=== PATIENT | male | born 1990 | race Caucasian/White ===

== ENCOUNTER → 2017-03-05 | Outpatient (CLI) | payer OTHER | LOC: FIMAGING 18:32 | PROVIDERS: ATTEND Family Medicine | DX: M25.561 Pain in right knee (principal); M25.562 Pain in left knee; R93.6 Abnormal findings on diagnostic imaging of limbs ==

== ENCOUNTER 2017-08-13 16:00 | Emergency (ER) | payer OTHER ==
[2017-08-13 16:34] VITALS: RESP 16; TEMP 98.8
--- NOTE | 2017-08-13 17:39 | EDPHY ---
H & P Smoking Status: Former smoker Time Seen by Provider: 08/13/17 16:56 HPI/ROS: CHIEF COMPLAINT: Rectal bleeding HISTORY OF PRESENT ILLNESS: 27-year-old male presents to the emergency department by private vehicle with 1 episode of rectal bleeding earlier this morning. Patient has a complicated past medical history including antiphospholipid antibody on Coumadin. He has a previous history of CVA. He has had a mitral valve repair. He states yesterday he had some watery diarrhea which then mostly resolved. He states that he had a bowel movement this morning which was more formed stool with bright red blood. He has some mild lower abdominal discomfort. He denies back pain. Denies chest pain or difficulty breathing. Denies urinary symptoms. He has never had this happen in the past. Denies trauma. REVIEW OF SYSTEMS: Constitutional: No fever, no chills. Eyes: No double or blurry vision. ENT: No sore throat. Respiratory: No cough, no shortness of breath. Cardiac: No chest pain. Gastrointestinal: Abdominal pain as above. Rectal bleeding as above. Diarrhea. No vomiting. Genitourinary: No dysuria. Musculoskeletal: No neck or back pain. Skin: No rashes. Neurological: No headache. (Patsy Espinoza) Past Medical/Surgical History: Antiphospholipid antibody, CVA 6 years ago, mitral valve repair in 2012, connective tissue disorder, hypertension, former substance abuse (Patsy Espinoza) Social History: Single (Patsy Espinoza) Physical Exam: General Appearance: Alert, no distress. Blood pressure 148/100, heart rate 74 , 98% on room air. Eyes: Pupils equal and round. Extraocular motions are all intact. ENT: Mouth: Mucous membranes moist. Respiratory: No wheezing, rhonchi, or rales, lungs are clear to auscultation. Cardiovascular: Regular rate and rhythm. Gastrointestinal: Abdomen is soft. Mild tenderness with palpation in the lower abdomen in the left and the right lower quadrant.. There is no rebound, guarding or masses noted. Neurological: Alert and oriented x 3, cranial nerves II through XII grossly intact Rectal exam: Normal sphincter tone. No obvious external hemorrhoid palpated. Bright red blood on gloved finger. No palpable mass. No stool. Skin: Warm and dry, no rashes. Musculoskeletal: Nontender to palpate along the cervical, thoracic or lumbar spine. Neck is supple. Extremities: Full range of motion and no peripheral edema. Psychiatric: Patient is oriented X 3, there is no agitation. (Patsy Espinoza) Constitutional: Initial Vital Signs Temperature (C) 37.1 C 08/13/17 16:31 Heart Rate 84 08/13/17 16:31 Respiratory Rate 16 08/13/17 16:31 Blood Pressure 134/94 H 08/13/17 16:31 O2 Sat (%) 99 08/13/17 16:31 O2 Delivery Mode Room Air Allergies/Adverse Reactions: amoxicillin [Amoxicillin] Allergy (Mild, Verified 08/13/17 16:29) Vomiting Cephalosporins Allergy (Mild, Verified 08/13/17 16:29) Rash levetiracetam [From Keppra] Allergy (Verified 08/13/17 16:29) Home Medications: Medication Instructions Recorded Warfarin Sodium [Coumadin 7.5MG 7.5 mg PO SUTUTHSA@16 06/06/14 (*)] Jeanmarie Cit/Mag/D3/Zn/Metal Machine Setter/Luis/Bor 04/01/15 Ondansetron 04/01/15 Oxycodone HCl 04/01/15 Plaquenil 200 mg (RX) 04/01/15 Prednisone 04/01/15 Alprazolam 08/13/17 Enoxaparin [Lovenox 80 MG (*)] 70 mg SQ Q12H #6 syr 08/13/17 Lyrica 08/13/17 Temazepam 08/13/17 busPIRone 08/13/17 Medical Decision Making ED Course/Re-evaluation: 27-year-old male presents to the emergency department with rectal bleeding. Patient had a rectal exam with what appeared to be blood although this was guaiac negative. His CBC was within normal limits. INR was low at 1.4. The patient thinks that he may have skipped a dose of his Coumadin. The case was discussed with Dr. Sheldon Whiteside, secondary supervising physician, who did not directly evaluate the patient but agrees with treatment and plan. He recommended men's bridging the patient with Lovenox twice daily for the next 3 days as he continues his prescribed Coumadin 10 mg daily. Encouraged close follow up with Gastroenterology as well as his primary care provider. He was instructed to return to the emergency department if he had any change in symptoms or felt worse in any way. Patient was comfortable with this plan. He was drinking juice and he felt comfortable being discharged home. (Patsy Espinoza) I did not see this patient while he was in the emergency department. However his care was discussed with the PA while the patient was in the department. I agree with treatment plan and management (Sheldon Whiteside) Differential Diagnosis: Including but not limited to internal hemorrhoid, external hemorrhoid, gastroenteritis, GI bleed (Patsy Espinoza) - Data Points Laboratory Results: Laboratory Results 08/13/17 19:15 08/13/17 19:15 Medications Given: Discontinued Medications Enoxaparin Sodium (Lovenox) 70 mg SC EDNOW ONE Stop: 08/13/17 21:46 Last Admin: 08/13/17 22:15 Dose: 70 mg Departure - Departure Disposition: Home, Routine, Self-Care Clinical Impression: Sub therapeutic INR, Rectal bleeding Condition: Good Instructions: Rectal Bleeding (ED) Additional Instructions: Continue Coumadin as prescribed. Lovenox twice daily for 3 days. Follow up with Dr. Morillo this week to recheck and have INR recheck. Return to the emergency department if you develop rectal bleeding, worsening abdominal pain, vomiting, fever, or if you feel worse in any way. Referrals: Елена Skelton MD [Primary Care Provider] - As per Instructions Billy Mix MD [Medical Doctor] - As per Instructions (Family Reunification Specialist on-call ) Prescriptions: Enoxaparin [Lovenox 80 MG (*)] 70 mg SQ Q12H #6 syr
[2017-08-13 19:27] LABS: PLATELET COUNT 225 10^3/uL (150-400)
[2017-08-13 19:48] LABS: INR 1.41 (0.83-1.16); PROTIME(PATIENT) 17.4 SEC (12.0-15.0)
[2017-08-13] MEDS ORDERED: ENOXAPARIN 80 MG/0.8 ML SYR SC ONE ×2 (21:11→21:45)
[2017-08-13 22:26] VITALS: BP 152/94; PULSE 88; O2SAT 98
== END 2017-08-13 22:25 | disposition home or self-care (01) ==
DX: K62.5 Hemorrhage of anus and rectum (principal); R79.1 Abnormal coagulation profile; I10 Essential (primary) hypertension; Z79.01 Long term (current) use of anticoagulants; Z86.73 Personal history of transient ischemic attack (TIA), and cerebral infarction without residual deficits
CPT/HCPCS: J1650

== ENCOUNTER 2017-11-23 11:35 | Emergency (ER) | payer OTHER ==
[2017-11-23 11:48] VITALS: BP 137/99
--- NOTE | 2017-11-23 12:12 | EDPHY ---
H & P Time Seen by Provider: 11/23/17 12:01 HPI/ROS: CHIEF COMPLAINT: Drill injury to genitalia HISTORY OF PRESENT ILLNESS: 27-year-old male with up-to-date tetanus, history of chronic warfarin use secondary to antiphospholipid syndrome, was using a mechanical with hand-held drill, drooling toward himself, building a grill when the drill slipped and went through shorts and impacted his genitalia. He has not urinated since the incident. Occurred shortly prior to arrival. Bleeding has now stopped. This was accidental PHYSICAL EXAM (Prior to examination, patient consented to physical exam, hands were washed and my usual and customary physical exam procedures followed) 1) GENERAL: Well-developed, well-nourished, alert and oriented. Appears anxious. 2) HEAD: Normocephalic 3) HEENT: sclera anicteric 4) LUNGS: Breathing comfortably. [5) : Bandages in place on the scrotum and the penis, taken down. On the left hemiscrotum superficial abrasion with no puncture wound. No signs of infection. No cellulitis. On the left dorsal shaft of the penis he has superficial abrasion, no puncture wound, no laceration. No blood from the urethral meatus. Smoking Status: Former smoker Constitutional: Initial Vital Signs Temperature (C) 37 C 11/23/17 11:45 Heart Rate 88 11/23/17 11:45 Respiratory Rate 16 11/23/17 11:45 Blood Pressure 137/99 H 11/23/17 11:45 O2 Sat (%) 97 11/23/17 11:45 O2 Delivery Mode Room Air Allergies/Adverse Reactions: amoxicillin [Amoxicillin] Allergy (Mild, Verified 08/13/17 16:29) Vomiting Cephalosporins Allergy (Mild, Verified 08/13/17 16:29) Rash levetiracetam [From Keppra] Allergy (Verified 08/13/17 16:29) Home Medications: Medication Instructions Recorded Warfarin Sodium [Coumadin 7.5MG 7.5 mg PO SUTUTHSA@16 06/06/14 (*)] Jeanmarie Cit/Mag/D3/Zn/Luster Applicator/Luis/Bor 04/01/15 Plaquenil 200 mg (RX) 04/01/15 Prednisone 04/01/15 Lyrica 08/13/17 busPIRone 08/13/17 Metoprolol Succinate 11/23/17 MDM/Departure - [facility] ED Course/Re-evaluation: This patient has superficial abrasion to the left hemiscrotum and left shaft of penis. Doubt testicular injury, doubt urethral injury. I do not think that retrograde urethrogram indicated. I do not think that testicular ultrasound is indicated. Patient has spontaneously urinated in the emergency department with no gross hematuria. Tetanus is already up-to-date. Wound has been dressed with antibiotic ointment. Usual customary precautions instructions provided. He does have a history of daily warfarin use secondary to antiphospholipid syndrome. Close monitoring to ensure no hematoma development encouraged. Care of patient under supervision of secondary supervising physician Dr Lubin with whom I discussed case. - Depart Disposition: Home, Routine, Self-Care Clinical Impression: Abrasion of scrotum Qualifiers: Encounter type: initial encounter Qualified Code(s): S30.813A - Abrasion of scrotum and testes, initial encounter Abrasion of penis with infection Qualifiers: Encounter type: initial encounter Qualified Code(s): S30.812A - Abrasion of penis, initial encounter Condition: Good Instructions: Abrasion (ED) Additional Instructions: If you develop redness, swelling, if you are unable to urinate, if you urinate blood, return to the ER immediately. Referrals: Елена Skelton MD [Primary Care Provider] - 2-3 days, call for appt.
== END 2017-11-23 12:32 | disposition home or self-care (01) ==
DX: S30.813A Abrasion of scrotum and testes, initial encounter (principal); S30.812A Abrasion of penis, initial encounter; Z79.01 Long term (current) use of anticoagulants; Z87.891 Personal history of nicotine dependence; W29.8XXA Contact with other powered hand tools and household machinery, initial encounter